=== PATIENT | female | born 1980 | race Caucasian/White ===

== ENCOUNTER 2016-10-07 21:23 | Emergency (ER) | payer MEDICARE, OTHER ==
--- NOTE | ~2016-10-07 | CR172 ---
[facility]. [facility] A Service of [facility] & [facility] RADIOLOGY TEXT RESULTS PATIENT: GIRMA HUNTER LOCATION: SED : [birth year] UNIT #: [id number] AGE: [address]: Rudy Wright DO SEX: F ORDER DR: [id number] [address] [address] [id number] E MR#: [id number] Acc #: [id number] NAME: GIRMA HUNTER : 1980 SEX: F STUDY DATE/TIME: 10/07/2016 21:37 UNIT: SED ROOM: STUDY DESCRIPTION: CR Knee 3 Views Lt Attending Physician: Rudy Wright D.O. Ordering Physician: Rudy Wright D.O. Primary Care Physician: No Primary Care Physician MEDICAL IMAGING REPORT This report is preliminary unless electronic signature is present. EXAM Left knee, 3 views. HISTORY Knee pain and swelling since yesterday. No injury. FINDINGS 3 views of the left knee demonstrate transverse fracture through the proximal tibial metaphysis with slight fracture impaction, but no significant angulation. Moderately large suprapatellar effusion, likely lipohemarthrosis. Generalized demineralization. No dislocation. Dictated by... Nirav Perez M.D. THIS IS AN ELECTRONICALLY VERIFIED REPORT Nirav Perez M.D. at 10/08/2016 11:20 PM DFL/michelle TD: 10/08/2016 07:05 JOB #: [id number] MEDICAL IMAGING REPORT Page 1 of 1
--- NOTE | ~2016-10-07 | CR106 ---
[facility] A Service of [facility] & [facility] RADIOLOGY TEXT RESULTS PATIENT: GIRMA HUNTER LOCATION: SED : [birth year] UNIT #: [id number] AGE: [address]: Rudy Wright DO SEX: F ORDER DR: [id number] [address] [address] [id number] E MR#: [id number] Acc #: [id number] NAME: GIRMA HUNTER : 1980 SEX: F STUDY DATE/TIME: 10/07/2016 21:37 UNIT: SED ROOM: STUDY DESCRIPTION: CR Femur 2 Views Lt Attending Physician: Rudy Wright D.O. Ordering Physician: Rudy Wright D.O. Primary Care Physician: No Primary Care Physician MEDICAL IMAGING REPORT This report is preliminary unless electronic signature is present. EXAM Left femur AP and lateral. HISTORY Leg pain since yesterday. No known injury. FINDINGS 2 views of the left femur were obtained. The exam does not include the distal femoral shaft and femoral condyles which are included on knee x-ray reported separately. There is generalized demineralization. Mild degenerative changes in the left hip. No fracture. No dislocation. IMPRESSION No acute abnormality. Demineralization. The distal aspect of the femur is not included on this study but is included on the knee x-ray reported separately. Dictated by... Nirav Perez M.D. THIS IS AN ELECTRONICALLY VERIFIED REPORT Nirav Perez M.D. at 10/08/2016 11:21 PM EMBER/sangeeta TD: 10/08/2016 07:08 JOB #: [id number] MEDICAL IMAGING REPORT Page 1 of 1
--- NOTE | ~2016-10-07 | CR252 ---
[facility] A Service of [facility] RADIOLOGY TEXT RESULTS PATIENT: GIRMA HUNTER LOCATION: SED : [birth year] UNIT #: [id number] AGE: [address]: Rudy Wright DO SEX: F ORDER DR: [id number] [address] [address] [id number] E MR#: [id number] Acc #: [id number] NAME: GIRMA HUNTER : 1980 SEX: F STUDY DATE/TIME: 10/07/2016 21:37 UNIT: SED ROOM: STUDY DESCRIPTION: CR Tibia and Fibula 2 Views Lt Attending Physician: Rudy Wright D.O. Ordering Physician: Rudy Wright D.O. Primary Care Physician: No Primary Care Physician MEDICAL IMAGING REPORT This report is preliminary unless electronic signature is present. EXAM Left tibia and fibula, AP and lateral. HISTORY Leg pain and swelling since yesterday. No known injury. FINDINGS 2 views of the left tibia and fibula demonstrate transverse fracture through the proximal tibial metaphysis with fracture extension to the medial base of the medial tibial spine. Generalized demineralization. No opaque soft tissue foreign body. Partly visualized moderately large knee effusion. Soft tissue swelling throughout the mid and distal lower leg. IMPRESSION 1. Transverse fracture of the proximal tibial metaphysis with slight fracture impaction. The fracture extends to the medial base of the medial tibial spine. 2. Partly visualized moderately large knee effusion in the suprapatellar bursa. 3. Generalized demineralization. Dictated by... Nirav Perez M.D. THIS IS AN ELECTRONICALLY VERIFIED REPORT Nirav Perez M.D. at 10/08/2016 11:21 PM DFL/sangeeta TD: 10/08/2016 07:06 JOB #: [id number] [facility] A Service of [facility] RADIOLOGY TEXT RESULTS PATIENT: GIRMA HUNTER LOCATION: SED : [birth year] UNIT #: [id number] AGE: [address]: Rudy Wright DO SEX: F ORDER DR: MEDICAL IMAGING REPORT Page 1 of 1
--- NOTE | ~2016-10-07 | CT52 ---
[facility] A Service of [facility] RADIOLOGY TEXT RESULTS PATIENT: GIRMA HUNTER LOCATION: SED : [birth year] UNIT #: [id number] AGE: [address]: Rudy Wright DO SEX: F ORDER DR: [id number] [address] [id number] E MR#: [id number] Acc #: [id number] NAME: GIRMA HUNTER : 1980 SEX: F STUDY DATE/TIME: 10/07/2016 23:17 UNIT: SED ROOM: STUDY DESCRIPTION: CT Cervical Spine Wo Cont Attending Physician: Rudy Wright D.O. Ordering Physician: Rudy Wright D.O. Primary Care Physician: No Primary Care Physician MEDICAL IMAGING REPORT This report is preliminary unless electronic signature is present. EXAM Cervical spine CT, 10/07 at 23:17. INDICATIONS Patient is noncommunicative. She appears to have had a trauma today. TECHNIQUE Axial images were obtained through the cervical spine without contrast. Multiplanar reformats were obtained. No comparison. This CT exam was performed with one or more of the following radiation dose reduction techniques: automatic exposure control, adjustment of mA and/or kV according to patient size, and iterative reconstruction. FINDINGS There are large anterior osteophytes from C4-C7. Cervical alignment is normal. There are no acute cervical spine fractures. Mild disc bulge is noted at C3-4 without significant central canal or neural foraminal stenosis. IMPRESSION No acute fracture or subluxation. Dictated by... Jaime Andino Jr., M.D. THIS IS AN ELECTRONICALLY VERIFIED REPORT Jaime Andino Jr., M.D. at 10/08/2016 12:35 PM RLK/michelle TD: 10/08/2016 08:10 JOB #: [id number] [facility] A Service of [facility] RADIOLOGY TEXT RESULTS PATIENT: GIRMA HUNTER LOCATION: SED : [birth year] UNIT #: [id number] AGE: [address]: Rudy Wright DO SEX: F ORDER DR: MEDICAL IMAGING REPORT Page 1 of 1
--- NOTE | ~2016-10-07 | CT71 ---
[facility] A Service of [facility] RADIOLOGY TEXT RESULTS PATIENT: GIRMA HUNTER LOCATION: SED : [birth year] UNIT #: [id number] AGE: [address]: Rudy Wright DO SEX: F ORDER DR: [id number] [address] [address] [id number] E MR#: [id number] Acc #: [id number] NAME: GIRMA HUNTER : 1980 SEX: F STUDY DATE/TIME: 10/07/2016 23:15 UNIT: SED ROOM: STUDY DESCRIPTION: CT Head Wo Contrast Attending Physician: Rudy Wright D.O. Ordering Physician: Rudy Wright D.O. Primary Care Physician: No Primary Care Physician MEDICAL IMAGING REPORT This report is preliminary unless electronic signature is present. EXAM Head CT, 10/07 at 2315. INDICATION Patient noncommunicative but appears to have had trauma today. FINDINGS Axial images were obtained from the base to the vertex without contrast. This CT exam was performed with one or more of the following radiation dose reduction techniques: automatic exposure control, adjustment of mA and/or kV according to patient size, and iterative reconstruction. COMPARISON STUDIES Comparison is made with 02/25/2007. FINDINGS Left occipital shunt tubes are present. 2 pieces of tubing are present. 1 is probably in use and the other is a fragment of an old tube. These are unchanged. The tip of the distal tube is in the right thalamus. Right parietal tubes are present as well. Once again, 1 appears to be in use and 1 appears to be an old tube fragment. Distal tip is just above the anterior horn of the left lateral ventricle. There is atrophy of the posterior fossa and particularly in both occipital and posterior parietal lobes. 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 No acute infarct or hemorrhage is seen. There are no masses. There are no skull fractures. IMPRESSION Chronic changes as above. No acute intracranial abnormality. No skull fracture. [facility] A Service of [facility] RADIOLOGY TEXT RESULTS PATIENT: GIRMA HUNTER [place]ATION[place] [facility] [place] [birth year] UNIT #: [id number] AGE: [address]: Rudy Wright DO SEX: F ORDER DR: Dictated by... Jaime Andino Jr., M.D. THIS IS AN ELECTRONICALLY VERIFIED REPORT Jaime Andino Jr., M.D. at 10/08/2016 12:35 PM ROSSY/sangeeta TD: 10/08/2016 08:10 JOB #: [id number] MEDICAL IMAGING REPORT Page 1 of 1
[~2016-10-07 21:23] MED LIST: AURALGAN EAR DR14 ML AD; BACLOFEN10 MG; BACLOFEN10 MG PO; BENADRYL25 M1 PO; BENAZEPRIL HCL5 MG PO; CICLOPIROX120 ML; CICLOPIROX120 ML TOP; CICLOPIROX120 ML TP; CLARITIN10 M2; CLARITIN10 M3 PO; CORTISPORI10 ML OTIC AD; COZAAR PO; CYANOCOBAL1000 MCG/M INJ; EAR DROPS15 M2 AD; FERRO-TIME325 MG PO; FLEXERIL PO; FLONASE 0.05% N16 G1; FLOXIN OTIC5 M1 AD; FLOXIN OTIC5 M1 OT; FLOXIN10 ML OT; FOLBEE AR TABL1 EACH PO; KEFLEX500 MG PO; LOSARTAN POTASS50 MG PO; MEDROL DOSEPAK4 MG PO; MIRALAX17 G1 PO; MIRALAX17 G2 PO; MIRALAX17 GM; MIRALAX255 GM PO; MUCINEX D ER T1 EAC1 PO; OMEPRAZOLE20 M1 PO; OMEPRAZOLE20 M2 PO; OMNICEF300 M1 PO; PHENOBARB PO; PHENOBARBITAL30 M1 PO; POTASSIUM20 MEQ/15 PO; PREDNISONE PO; PRILOSEC PO; SOMINEX; VALTREX500 MG; VICODIN 5/500 T1 TAB PO; VITAMIN D-32000 UNI1 PO
== END 2016-10-08 00:50 | disposition home or self-care (01) ==
LOC: SED 21:23
DX: S82.102A Unspecified fracture of upper end of left tibia, initial encounter for closed fracture (principal); Z98.890 Other specified postprocedural states; X58.XXXA Exposure to other specified factors, initial encounter; Y92.481 Parking lot as the place of occurrence of the external cause
CPT/HCPCS: 29530; 70450; 72125; 73552; 73562; 73590; 99284

== ENCOUNTER 2016-12-25 13:33 | Emergency (ER) | payer MEDICARE, OTHER | END 2016-12-25 14:09 | disposition home or self-care (01) | LOC: SED 13:33 | DX: L03.113 Cellulitis of right upper limb (principal); K21.9 Gastro-esophageal reflux disease without esophagitis; E28.2 Polycystic ovarian syndrome; Z79.899 Other long term (current) drug therapy; Z88.0 Allergy status to penicillin; Z88.1 Allergy status to other antibiotic agents; Z91.040 Latex allergy status; Z88.8 Allergy status to other drugs, medicaments and biological substances | CPT/HCPCS: 99283 ==